=== PATIENT | male | born 1945 | race Caucasian/White ===

== ENCOUNTER 2020-05-27 14:40 | Inpatient (IN) | payer OTHER ==
[~2020-05-27] VITALS: Ht 172.7 cm; Wt 66.3 kg
[2020-05-27 17:18] LABS: HEMOGLOBIN 9.7 gm/dl (14.0-17.5); RED BLOOD COUNT 4.35 M/UL (4.20-5.50); WHITE BLOOD COUNT 7.3 K/UL (4.5-11.0)
[2020-05-27 17:34] LABS: BUN/CREATININE RATIO 40 (0-10)
[2020-05-28] MEDS ORDERED: OXYCODON-ACETA1 EAC1 PO (00:36)
[2020-05-28] MEDS ORDERED: LOPRESSOR 25 MG25 MG PO (00:45)
[2020-05-28] MEDS ORDERED: GABAPENTIN600 MG PO (00:46)
[2020-05-28] MEDS ORDERED: CATAPRES 0.1MG0.1 MG PO (00:46)
[2020-05-28] MEDS ORDERED: ONDANSETRON HCL4 MG PO (00:46)
[2020-05-28] MEDS ORDERED: CELECOXIB200 MG PO (00:47)
[2020-05-28] MEDS ORDERED: PRAVASTATIN SOD20 MG PO (00:47)
[2020-05-28 05:55] LABS: HEMOGLOBIN 8.9 gm/dl (14.0-17.5); RED BLOOD COUNT 3.94 M/UL (4.20-5.50); WHITE BLOOD COUNT 5.9 K/UL (4.5-11.0)
[2020-05-28 06:19] LABS: BUN/CREATININE RATIO 40 (0-10)
--- NOTE | 2020-05-28 18:17 | NUR ---
1700 PT DEMANDED WAFFLE MATTRESS BE REMOVED, DAUGHTER PRESENT AND AWARE, YUNIER HYDE ALSO PRESENT AND HELPED DEFLATE WAFFLE MATTRESS
--- NOTE | 2020-05-29 18:40 | NUR ---
1700 DGT HERE WITH A BAG OF MEDICINE STATED THAT IT WAS PTS MEDS,DGT INFORMED THAT SHE COULD NOT GIVE PT ANY MEDS OR THAT SHE CANNOT LEAVE MEDS IN PTS ROOM.,WHEN DGT LEFT SHE HAD BAG OF MEDICINE WITH HER, AYAD MATA
[2020-06-01 03:12] LABS: RED BLOOD COUNT 3.95 M/UL (4.20-5.50); WHITE BLOOD COUNT 5.5 K/UL (4.5-11.0)
[2020-06-01 03:29] LABS: BUN/CREATININE RATIO 46 (0-10)
[2020-06-01] MEDS ORDERED: MILK OF MA400 MG/5 M PO (13:04)
[2020-06-01] MEDS ORDERED: POLYETHYLENE GL17 GM PO (13:04)
[2020-06-01] MEDS ORDERED: LEVOFLOXACIN500 MG PO (13:04)
[2020-06-01] MEDS ORDERED: QUETIAPINE FUM100 MG PO (13:04)
[2020-06-01] MEDS ORDERED: DOCUSATE SODIU100 MG PO (13:04)
[2020-06-05 05:38] LABS: HEMOGLOBIN 9.3 gm/dl (14.0-17.5); RED BLOOD COUNT 4.11 M/UL (4.20-5.50); WHITE BLOOD COUNT 5.2 K/UL (4.5-11.0)
[2020-06-05 05:42] LABS: BUN/CREATININE RATIO 53 (0-10)
[2020-06-06 04:02] LABS: RED BLOOD COUNT 3.93 M/UL (4.20-5.50); WHITE BLOOD COUNT 5.4 K/UL (4.5-11.0)
[2020-06-06 04:19] LABS: BUN/CREATININE RATIO 53 (0-10)
[2020-06-07 04:24] LABS: RED BLOOD COUNT 4.06 M/UL (4.20-5.50); WHITE BLOOD COUNT 5.3 K/UL (4.5-11.0)
[2020-06-07 04:43] LABS: BUN/CREATININE RATIO 46 (0-10)
[2020-06-07] MEDS ORDERED: GABAPENTIN600 MG PO (16:38)
[2020-06-07] MEDS ORDERED: OXYCODON-ACETA1 EAC1 PO (16:38)
== END 2020-06-08 15:00 | disposition home health service (06) | DRG 535 ==
LOC: ER1 14:40 → CDU 21:00 → M/S 21:00
PROVIDERS: Internal Medicine; Nurse Practitioner; ADMIT Internal Medicine
DX: S32.402A Unspecified fracture of left acetabulum, initial encounter for closed fracture (principal); E43 Unspecified severe protein-calorie malnutrition; T74.01XA Adult neglect or abandonment, confirmed, initial encounter; D50.9 Iron deficiency anemia, unspecified; R29.6 Repeated falls; N21.0 Calculus in bladder; R31.9 Hematuria, unspecified; Z20.822 Contact with and (suspected) exposure to COVID-19; M19.90 Unspecified osteoarthritis, unspecified site; M41.9 Scoliosis, unspecified; S46.012A Strain of muscle(s) and tendon(s) of the rotator cuff of left shoulder, initial encounter; I10 Essential (primary) hypertension; E78.5 Hyperlipidemia, unspecified; D53.9 Nutritional anemia, unspecified; Z91.81 History of falling; W18.39XA Other fall on same level, initial encounter; F17.210 Nicotine dependence, cigarettes, uncomplicated; Z83.3 Family history of diabetes mellitus; Z82.3 Family history of stroke; Z80.9 Family history of malignant neoplasm, unspecified; Z82.49 Family history of ischemic heart disease and other diseases of the circulatory system; Z88.2 Allergy status to sulfonamides; Z79.899 Other long term (current) drug therapy; F39 Unspecified mood [affective] disorder; L89.151 Pressure ulcer of sacral region, stage 1; L89.012 Pressure ulcer of right elbow, stage 2; S40.022A Contusion of left upper arm, initial encounter; S40.021A Contusion of right upper arm, initial encounter; S80.12XA Contusion of left lower leg, initial encounter; S80.11XA Contusion of right lower leg, initial encounter
CPT/HCPCS: 36415; 71045; 73030; 73522; 80048; 80053; 80307; 81001; 82272; 82550; 82553; 82962; 83605; 83690; 83735; 83874; 84484; 85025; 85027; 86850; 86900; 86901; 87040; 87077; 87086; 87186; 93005; 96365; 96375; 97110-GP-CQ; 97162; 97530-GP-CQ; 99285; A6212; J0696; J1170; J1650; J2270; J2405; J7030; Q9967; U0002